=== PATIENT | female | born 1930 | race African-American/Black ===

== ENCOUNTER 2017-12-24 17:07 | Inpatient (IN) ==
[2017-12-24 18:31] LABS: Basophils # 0.1 10*3/uL (0.0-0.2); Basophils % 0.6 % (0.0-0.8); Eosinophils # 0.3 10*3/uL (0.0-0.87); Eosinophils % 2.6 % (0.00-10.9); Hematocrit 40.4 VOL% (35.7-47.0); Immature Granulocytes % 1.4 %; Immature Granulocytes Absolute 0.14 #; Lymphocytes # 1.7 10*3/uL (1.4-4.0); Mean Corpuscular HGB Conc 32.2 GM/DL (32-36); Mean Corpuscular Hemoglobin 28 PG (27-34); Mean Corpuscular Volume 86.1 FL (87-102); Mean Platelet Volume 10.2 FL (9.6-12.0); Monocytes # 0.4 10*3/uL (0.11-0.8); Monocytes % 4.1 % (1.7-12.7); Neutrophils # 7.3 10*3/uL (1.4-7.4); Neutrophils % 74.3 % (38.7-73.9); Platelet Count 239 T/CUMM (130-400); Red Blood Count 4.69 MC/CUMM (3.8-5.5); Red Cell Distribution Width 15.8 % (9.3-17.3); White Blood Count 9.8 T/CUMM (4-12)
[2017-12-24] MEDS ORDERED: KETOROLAC 15 MG/1 ML VIAL IV PRN (18:52)
[2017-12-24] MEDS ORDERED: ACETAMINOPHEN 325 MG TABLET PO PRN (18:52)
[2017-12-24] MEDS ORDERED: ONDANSETRON 4 MG/2 ML VIAL IV PRN (18:52)
[2017-12-24 19:01] LABS: PT Patient Result 10.4 SECS; Partial Thromboplastin Time 25.3 SECS (0-40)
[2017-12-24 19:09] LABS: Alanine Aminotransferase 22 U/L (13-56); Albumin 3.8 G/DL (3.4-5.0); Alkaline Phosphatase 97 U/L (45-117); Amylase 106 U/L (25-115); Aspartate Amino Transferase 22 U/L (0-37); Blood Urea Nitrogen 13 MG/DL (7-18); Glucose 124 MG/DL (74-106); Sodium 136 MMOL/L (136-145); Total Protein 7.7 G/DL (6.4-8.3)
[2017-12-24] MEDS: DEXTROSE 5% LACTATED RINGERS 1,000 ML IV SCH (21:12)
[2017-12-25] MEDS: DEXTROSE 5% LACTATED RINGERS 1,000 ML IV SCH ×2 (04:36→04:41)
[2017-12-25] MEDS ORDERED: PANTOPRAZOLE 40 MG TABLET PO SCH (09:00)
[2017-12-25 11:03] VITALS: BP 172/80
== END 2017-12-25 14:50 | disposition home or self-care (01) | DRG 552 ==
LOC: EDUNIT# → EDBD → N.ED 17:07 → N.EDINP 18:52 → N.3E 19:54
PROVIDERS: ADMIT Surgery; ATTEND Surgery